=== PATIENT | female | born 1950 | race Caucasian/White ===

== ENCOUNTER 2017-12-23 11:51 | Outpatient (CLI) | payer BC | END 2017-12-23 11:52 | disposition home or self-care (01) | LOC: BICMAMMO 11:51 | PROVIDERS: ATTEND Family Medicine | DX: Z12.31 Encounter for screening mammogram for malignant neoplasm of breast (principal) | CPT/HCPCS: 77063; 77067 ==

== ENCOUNTER 2018-12-31 10:51 | Outpatient (CLI) | payer BC ==
--- NOTE | 2018-12-31 14:09 | MMO ---
Bilateral MAMMO Bilat Screen [facility]. CLINICAL HISTORY: Patient is 68 years old and is seen for screening. The patient has no family history of breast cancer. The patient has no personal history of cancer. The patient has a history of left Excisional Biopsy in 2004 - benign. VIEWS: The views performed were: bilateral craniocaudal with tomosynthesis and bilateral mediolateral oblique with tomosynthesis. FILMS COMPARED: The present examination has been compared to prior imaging studies performed at [facility] on 09/28/2013, 09/30/2014, 10/06/2014, 11/21/2015, 12/06/2016 and 12/23/2017. MAMMOGRAM FINDINGS: There are scattered fibroglandular densities. There is a new nodule with circumscribed margins seen in the central region of the left breast. In the right breast, there are no suspicious masses, calcifications or areas of architectural distortion. IMPRESSION: NEW NODULE IN THE LEFT BREAST REQUIRES ADDITIONAL EVALUATION. AN ULTRASOUND EXAM IS RECOMMENDED IF NEEDED. SPOT MAGNIFICATION VIEW(S) ARE RECOMMENDED. THE RESULTS OF THIS EXAM WERE SENT TO THE PATIENT. ACR BI-RADS Category 0 - Incomplete: Need additional imaging evaluation. [facility] will notify the patient of the need for additional imaging services. MAMMOGRAPHY NOTE: 1. A negative mammogram report should not delay a biopsy if a dominant of clinically suspicious mass is present. 2. Approximately 10% to 15% of breast cancers are not detected by mammography. 3. Adenosis and dense breasts may obscure an underlying neoplasm.
== END 2018-12-31 10:52 | disposition home or self-care (01) ==
LOC: BICMAMMO 10:51
PROVIDERS: ATTEND Family Medicine
DX: Z12.31 Encounter for screening mammogram for malignant neoplasm of breast (principal); N63.20 Unspecified lump in the left breast, unspecified quadrant
CPT/HCPCS: 77063; 77067

== ENCOUNTER 2019-01-08 14:05 | Outpatient (CLI) | payer BC ==
--- NOTE | 2019-01-08 15:20 | MMO ---
Left Breast MAMMO Unilat Diag [facility]. CLINICAL HISTORY: Patient is 68 years old and is seen for additional evaluation requested from prior study. The patient has no family history of breast cancer. The patient has no personal history of cancer. The patient has a history of left Excisional Biopsy in 2004 - benign. VIEWS: The views performed were: left craniocaudal spot compression with tomosynthesis; left mediolateral oblique spot compression with tomosynthesis; and left mediolateral with tomosynthesis. FILMS COMPARED: The present examination has been compared to prior imaging studies performed at [facility] on 11/21/2015, 12/06/2016, 12/23/2017, 12/31/2018 and 01/08/2019. MAMMOGRAM FINDINGS: There are scattered fibroglandular densities. Additional views were performed. The left breast nodule persists. This was not seen on US. IMPRESSION: FINDING IN THE LEFT BREAST IS SUSPICIOUS. BIOPSY IS RECOMMENDED. THE RESULTS OF THIS EXAM WERE SENT TO THE PATIENT. ACR BI-RADS Category 4 - Suspicious abnormality - biopsy should be considered MAMMOGRAPHY NOTE: 1. A negative mammogram report should not delay a biopsy if a dominant of clinically suspicious mass is present. 2. Approximately 10% to 15% of breast cancers are not detected by mammography. 3. Adenosis and dense breasts may obscure an underlying neoplasm.
--- NOTE | 2019-01-08 15:28 | ULT ---
LEFT BREAST ULTRASOUND: HISTORY: Abnormal mammogram of 12/31/2018. FINDINGS: Sonographic evaluation of the left breast (8 to 10 o'clock positions) demonstrates no abnormality to correspond to the mammographic finding. IMPRESSION: BIRADS category 4 - suspicious abnormality. Biopsy of the left breast nodule is recommended. This c an be performed with stereotactic approach or needle localization and subsequent excision. CODE T POS: OFF
== END 2019-01-08 14:06 | disposition home or self-care (01) ==
LOC: BICMAMMO 14:05
PROVIDERS: ATTEND Family Medicine
DX: R92.8 Other abnormal and inconclusive findings on diagnostic imaging of breast (principal); N63.20 Unspecified lump in the left breast, unspecified quadrant
CPT/HCPCS: G0279

== ENCOUNTER 2020-05-16 09:34 | Outpatient (CLI) | payer BC ==
--- NOTE | 2020-05-16 10:15 | RAD ---
Right wrist 3 views HISTORY: Fall. Injury. COMPARISON: 05/05/2020. FINDINGS: Scaphoid waist and ulnar styloid are intact. Scapholunate interval is 0.4 cm. 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 Partial collapse of the articular surfaces. No acute fracture or dislocation. There is calcification of the triangular fibrocartilaginous complex . Mild ulnar negative variant. IMPRESSION : Slight widening of the scapholunate distance. Clinical correlation regarding other signs and symptoms of proximal carpal row instability is required. 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 No acute osseous a bnormalities are demonstrated. Chondrocalcinosis TFCC.
== END 2020-05-16 09:35 | disposition home or self-care (01) ==
LOC: BICRAD 09:34
PROVIDERS: ATTEND Family Medicine
DX: S60.211A Contusion of right wrist, initial encounter (principal); M19.031 Primary osteoarthritis, right wrist; M11.231 Other chondrocalcinosis, right wrist

== ENCOUNTER 2021-02-20 09:26 | Outpatient (CLI) | payer BC | END 2021-02-20 09:27 | disposition home or self-care (01) | LOC: BICMAMMO 09:26 | PROVIDERS: ATTEND Family Medicine | DX: Z12.31 Encounter for screening mammogram for malignant neoplasm of breast (principal); Z91.89 Other specified personal risk factors, not elsewhere classified | CPT/HCPCS: 77063; 77067 ==

== ENCOUNTER 2021-03-19 17:30 | Outpatient (CLI) | payer BC | END 2021-03-19 17:31 | disposition home or self-care (01) | LOC: SLEEPLAB 17:30 | PROVIDERS: ATTEND Family Medicine | DX: G47.33 Obstructive sleep apnea (adult) (pediatric) (principal); R53.83 Other fatigue; G31.84 Mild cognitive impairment of uncertain or unknown etiology; R51.9 Headache, unspecified; K21.9 Gastro-esophageal reflux disease without esophagitis; R06.83 Snoring; F41.9 Anxiety disorder, unspecified; G47.00 Insomnia, unspecified; R35.1 Nocturia; I11.0 Hypertensive heart disease with heart failure; I50.9 Heart failure, unspecified; E66.9 Obesity, unspecified; Z68.31 Body mass index [BMI] 31.0-31.9, adult | CPT/HCPCS: 95806 ==